=== PATIENT | male | born 1935 | race Caucasian/White ===

== ENCOUNTER 2024-04-02 10:42 | Outpatient (AMB) | payer MEDICARE, SELFPAY ==
--- NOTE | 2024-04-02 11:16 | A.SPINEOV_ITS ---
Intake Visit Reasons: Back pain Intake Note: Mr. Laboy is here today c/o low back pain. 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 It starts at his neck and goes down across his s houlder into his arm and ends at about the level of his wrist. 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 He underwent an MRI showing multilevel degenerative changes of his neck and came in today see us for an evaluation. The symptoms do not bother him at night. They are generally only present during the day when he is active. He is at the gym almost every day and he can feel it but he will generally just work out through it and does not let it keep him from doing any activities. He does not have any pain in the arm. He has no strength loss. 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 He has had numerous orthopedic surgeries including his knees, shoulders and a spinal fusion. Bilateral carpal tunnel release. Social hx: He has not smoke, drink or use any recreational drugs Medications: Eliquis, Lipitor, Flomax Allergies: None Physical exam: Awake alert oriented no acute distress, he has full strength of bilateral upper and lower extremities. Gait is normal. Reflexes diminished at the biceps and triceps on the right. 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 There is bilateral neuroforaminal narrowing at C5-6 and C6-7. No spinal cord compression. Impression: 88-year-old male self-referred today for evaluation of what sounds like a radiculopathy down the right arm secondary to the C5-6 disc degeneration. His symptom at this time is tingling. He has no pain and no weakness. He has an EMG confirming this. At this point, he is not surgical. He does not have any profound pain to report and the symptoms are not affecting his quality of life. He is sleeping very well and goes to the gym every day. I told him if he starts to develop a severe pain or notices any weakness at the gym to come on back and we would be happy to rediscuss. Otherwise he can just continue with activities as tolerated. He has no restrictions. Thank you for allowing us to care for your patient. The total time spent with this visit with this patient was 45 minutes reviewing history, physical exam, cervical imaging review, and implementation of treatment plan or further diagnostic testing Bryan Avilez MD,PhD [facility] Coding Level of Care Code New Pt Level 4 (10287) Diagnoses Cervical radiculopathy M54.12
== END 2024-04-02 12:09 | disposition home or self-care (01) ==
PROVIDERS: PCP Student in an Organized Health Care Education/Training Program; Visit Provider Physician Assistant
DX: M54.12 Radiculopathy, cervical region (principal)
CPT/HCPCS: 99204

== ENCOUNTER → 2024-04-02 10:42 | Outpatient (BNVA) | payer MEDICARE, SELFPAY | PROVIDERS: PCP Student in an Organized Health Care Education/Training Program; Visit Provider Physician Assistant | DX: M54.12 Radiculopathy, cervical region (principal) | CPT/HCPCS: 99202 ==